=== PATIENT | male | born 1995 | race African-American/Black ===

== ENCOUNTER 2016-08-05 12:57 | Inpatient (IN) | payer OTHER ==
--- NOTE | 2016-08-05 13:53 | ED ---
Psychiatric Complaint - HPI Summary HPI Summary: Pt BIB campus police for odd/bizarre behavior over the past few weeks. Pt reports he feels his mentation is fine. Denies SI/HI. Has been at [employer] for 3 years now - stressful but he keeps himself busy with activities to prevent feeling down. Lives alone but discloses he may look for a roommate at some point. Has sibling on campus as well. From [place] - doesn't get back as much as he liked to. Reports he is eating and drinking well -3 meals a day. Sleeping well also - sometimes has to adjust his position but usually helps. When asked if he has auditory or visual hallucinations, he reports auditory when he's stressed. When asked more specifics, states he just has a lot of thoughts going through his head - no gauri message. Uses ETOH and may have a few cigarettes on the weekends but tries to limit his intake and does not use these during the week. Denies other drug or substance use at all. Denies ORDAZ, chest pain, dyspnea, ab pain, rash. Has been urinating and moving bowels well. Does report an area on his Lt foot between toes that has been an issue but states he took care of it. No pain, redness, streaking or swelling at this time. Denies health issues in general. - History Of Current Complaint Chief Complaint: EDMentalHealth Time Seen by Provider: 08/05/16 13:12 Hx Obtained From: Patient - Allergies/Home Medications Allergies/Adverse Reactions: Allergies Allergy/AdvReac Type Severity Reaction Status Date / Time Acetaminophen Allergy Hives Verified 08/05/16 20:20 seasonal allergies Allergy Difficulty Uncoded 08/05/16 20:23 Breathing PMH/Surg Hx/FS Hx/Imm Hx Previously Healthy: Yes Endocrine/Hematology History: Denies: Hx Anemia Infectious Disease History: No Infectious Disease History: Denies: Traveled Outside the [place] in Last 30 Days - Family History Known Family History: Positive: Cardiac Disease - Social History Occupation: Student Lives: Alone Alcohol Use: Weekly - weekend Hx Substance Use: No Substance Use Type: Reports: None Hx Tobacco Use: Yes - weekends w/ drinking ETOH, sparingly Review of Systems Negative: Fever, Chills Eyes: Negative ENT: Negative Cardiovascular: Negative Negative: Chest Pain Respiratory: Negative Negative: Shortness Of Breath Negative: Abdominal Pain, Vomiting, Diarrhea, Nausea Genitourinary: Negative Positive: see HPI Musculoskeletal: Negative Skin: Other - see HPI Neurological: Negative Psychological: Other - see HPI All Other Systems Reviewed And Are Negative: Yes Physical Exam Triage Information Reviewed: Yes Vital Signs On Initial Exam: Initial Vitals Temp Pulse Resp BP Pulse Ox 98.4 F 65 18 130/77 100 08/05/16 12:59 08/05/16 12:59 08/05/16 12:59 08/05/16 12:59 08/05/16 12:59 Vital Signs Reviewed: Yes Appearance: Positive: Well-Appearing, No Pain Distress, Thin Skin: Positive: Warm, Dry - area of calloused tissue w/ black spots within along lateral aspect of toe on Lt foot - NTTP, no erythema, no edema, no d/c, no streaking Head/Face: Positive: Normal Head/Face Inspection Eyes: Positive: Normal, EOMI, Conjunctiva Clear ENT: Positive: Hearing grossly normal, Pharynx normal. Negative: Nasal congestion Neck: Positive: Supple Respiratory/Lung Sounds: Positive: Clear to Auscultation, Breath Sounds Present. Negative: Rales, Rhonchi, Wheezes Cardiovascular: Positive: Normal, RRR, Pulses are Symmetrical in both Upper and Lower Extremities, S1, S2. Negative: Leg Edema Left, Leg Edema Right Abdomen Description: Positive: Nontender, Soft Bowel Sounds: Positive: Present Musculoskeletal: Positive: Normal, Strength/ROM Intact Neurological: Positive: Normal, Sensory/Motor Intact, Alert, Oriented to Person Place, Time, CN Intact II-III, Other - Pt is aware of person, place, location ( facility, county, city, state), time (date and day although was not sure if it was 2015 or 2017 regarding the year). Initially said Elsy was president but then corrected himself by saying Edin. Psychiatric: Positive: Other - somewhat flat affect; delayed response at times; stares at times, sometimes at me w/ eye contact, somtimes at other objects; appears somewhat fatigued and w/ difficulty concentrating/focusing intermittently; calm, cooperative, thoughts are organized; denies SI/HI; may have auditory hallucinations (see HPI for details) Diagnostics - Vital Signs Vital Signs Temp Pulse Resp BP Pulse Ox 08/05/16 12:59 98.4 F 65 18 130/77 100 - Laboratory Result Diagrams: 08/05/16 14:05 08/05/16 14:05 Lab Statement: Any lab studies that have been ordered have been reviewed, and results considered in the medical decision making process. Course/Dx - Course Course Of Treatment: Referred to for evaluation as he does appear to have a mental distance at this time. Admitted. Plantar wart appears to be under control at this time and may be tx'd outpt. - Differential Dx/Clinical Impression Provider Diagnosis: psychosis nos, Plantar wart Discharge - Discharge Plan Condition: Stable Disposition: ADMITTED TO [facility]
[2016-08-05 14:14] LABS: Benzodiazepine Urine Screen None Detected (None Detect); Urine Bilirubin Negative (Negative); Urine Glucose Negative (Negative); Urine Nitrite Negative (Negative)
[2016-08-05 14:16] LABS: Hematocrit 47 % (42-52); Hemoglobin 15.3 g/dl (14.0-18.0); Mean Corpuscular HGB Conc 33 g/dl (31-36); Mean Corpuscular Hemoglobin 26 pg (27-31); Mean Corpuscular Volume 81 fL (80-94); Mean Platelet Volume 8 um3 (7.4-10.4); Red Cell Distribution Width 14 % (10.5-15); White Blood Count 6.3 10^3/ul (3.5-10.8)
[2016-08-05 14:32] LABS: ALT 20 U/L (7-52); AST 29 U/L (13-39); Albumin 4.6 g/dL (3.2-5.2); Alkaline Phosphatase 89 U/L (34-104); Anion Gap 5 mmol/L (2-11); BUN/Creatinine Ratio 14.5 (8-20); Blood Urea Nitrogen 12 mg/dL (6-24); CO2 Carbon Dioxide 29 mmol/L (22-32); Calcium 9.6 mg/dL (8.6-10.3); Chloride 103 mmol/L (101-111); EGFR Non-African American 115.9 (>60); Globulin 3.1 g/dL (2-4); Glucose 88 mg/dL (70-100); Potassium 3.5 mmol/L (3.5-5.0); Sodium 137 mmol/L (133-145); Total Protein 7.7 g/dL (6.4-8.9)
[2016-08-05 14:50] LABS: Acetaminophen < 15 mcg/mL; Alcohol < 10 mg/dL (<10); Salicylate < 2.50 mg/dL (<30)
[2016-08-05 15:00] LABS: TSH (Thyroid Stimulating Horm) 0.78 mcIU/mL (0.34-5.60)
[2016-08-05] MEDS ORDERED: Acetaminophen TAB* 325 MG PO PRN (15:43)
[2016-08-05] MEDS ORDERED: Al Hydrox/Mg Hydrox/Simet LIQ* 30 ML UDC PO PRN (15:43)
[2016-08-05] MEDS: QUEtiapine TAB* 100 MG PO SCH (21:02)
[2016-08-05] MEDS: Ibuprofen TAB* 600 MG PO PRN (21:03)
[2016-08-06] MEDS: Sertraline* 50 MG TAB PO SCH (09:16)
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
[2016-08-06] MEDS: QUEtiapine TAB* 100 MG PO SCH (21:40)
[2016-08-06] MEDS: Ibuprofen TAB* 600 MG PO PRN (23:34)
[2016-08-07] MEDS: Sertraline* 50 MG TAB PO SCH (10:54)
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
[2016-08-07] MEDS: Ibuprofen TAB* 600 MG PO PRN (20:21)
[2016-08-07] MEDS: QUEtiapine TAB* 100 MG PO SCH (20:22)
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
[2016-08-08] MEDS: QUEtiapine TAB* 100 MG PO SCH (21:04)
[2016-08-09 08:08] LABS: HDL Cholesterol 70.8 mg/dL
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
[2016-08-09] MEDS: Ibuprofen TAB* 600 MG PO PRN (20:18)
[2016-08-09] MEDS: QUEtiapine TAB* 100 MG PO SCH (20:19)
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
[2016-08-10] MEDS: QUEtiapine TAB* 100 MG PO SCH (20:41)
[2016-08-10] MEDS: Ibuprofen TAB* 600 MG PO PRN (20:42)
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
[2016-08-11] MEDS: Ibuprofen TAB* 600 MG PO PRN (20:12)
[2016-08-11] MEDS: QUEtiapine TAB* 100 MG PO SCH (20:12)
[2016-08-12] MEDS: QUEtiapine TAB* 100 MG PO SCH (21:04)
[2016-08-12] MEDS: Ibuprofen TAB* 600 MG PO PRN (21:05)
[2016-08-13] MEDS: Ibuprofen TAB* 600 MG PO PRN (20:21)
[2016-08-13] MEDS: QUEtiapine TAB* 100 MG PO SCH (20:22)
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
[2016-08-14] MEDS: Ibuprofen TAB* 600 MG PO PRN (20:31)
[2016-08-14] MEDS ORDERED: QUEtiapine TAB* 100 MG PO SCH (21:00)
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
[2016-08-15] MEDS: QUEtiapine TAB* 100 MG PO SCH (21:14)
[2016-08-15] MEDS: Ibuprofen TAB* 600 MG PO PRN (21:16)
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
[2016-08-16] MEDS: QUEtiapine TAB* 100 MG PO SCH (20:20)
[2016-08-16] MEDS: Ibuprofen TAB* 600 MG PO PRN (20:22)
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
[2016-08-17] MEDS: QUEtiapine TAB* 100 MG PO SCH (20:18)
[2016-08-17] MEDS: Ibuprofen TAB* 600 MG PO PRN (20:19)
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
[2016-08-18] MEDS: Ibuprofen TAB* 600 MG PO PRN (20:20)
[2016-08-18] MEDS: QUEtiapine TAB* 100 MG PO SCH (20:20)
[2016-08-19] MEDS: QUEtiapine TAB* 100 MG PO SCH (20:28)
[2016-08-19] MEDS: Ibuprofen TAB* 600 MG PO PRN (20:28)
[2016-08-20] MEDS: Ibuprofen TAB* 600 MG PO PRN ×2 (17:19→21:31)
[2016-08-20] MEDS: QUEtiapine TAB* 100 MG PO SCH (21:29)
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
[2016-08-21] MEDS: QUEtiapine TAB* 100 MG PO SCH (20:22)
[2016-08-21] MEDS: Ibuprofen TAB* 600 MG PO PRN (20:23)
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
[2016-08-22] MEDS: Ibuprofen TAB* 600 MG PO PRN (20:18)
[2016-08-22] MEDS: QUEtiapine TAB* 100 MG PO SCH (20:18)
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
[2016-08-23] MEDS: QUEtiapine TAB* 100 MG PO SCH (20:36)
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
[2016-08-24] MEDS: QUEtiapine TAB* 100 MG PO SCH (20:06)
[2016-08-24] MEDS: Ibuprofen TAB* 600 MG PO PRN (20:07)
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
[2016-08-25] MEDS: QUEtiapine TAB* 100 MG PO SCH (20:31)
[2016-08-25] MEDS: Ibuprofen TAB* 600 MG PO PRN (21:44)
[2016-08-26] MEDS: Ibuprofen TAB* 600 MG PO PRN (20:45)
[2016-08-26] MEDS: QUEtiapine TAB* 100 MG PO SCH (20:45)
[2016-08-27] MEDS: Ibuprofen TAB* 600 MG PO PRN (21:00)
[2016-08-27] MEDS: QUEtiapine TAB* 100 MG PO SCH (21:01)
[2016-08-27] MEDS: Haloperidol TAB* 5 MG PO PRN (23:17)
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
[2016-08-28] MEDS: Ibuprofen TAB* 600 MG PO PRN (20:28)
[2016-08-28] MEDS: QUEtiapine TAB* 100 MG PO SCH (20:28)
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
[2016-08-29] MEDS: guaiFENesin LIQ* 100 MG/5 ML UDC PO PRN ×2 (18:17→23:52)
[2016-08-29] MEDS: QUEtiapine TAB* 100 MG PO SCH (21:00)
[2016-08-29] MEDS: Ibuprofen TAB* 600 MG PO PRN (21:01)
[2016-08-30] MEDS: guaiFENesin LIQ* 100 MG/5 ML UDC PO PRN (08:36)
[2016-08-30] MEDS: Benzocaine/Menthol LOZ* 1 LOZENGE PO PRN ×3 (12:40→20:29)
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
[2016-08-30] MEDS: QUEtiapine TAB* 100 MG PO SCH ×2 (20:27→21:36)
[2016-08-30] MEDS: Ibuprofen TAB* 600 MG PO PRN (20:27)
[2016-08-31] MEDS: Benzocaine/Menthol LOZ* 1 LOZENGE PO PRN ×2 (08:57→13:33)
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
[2016-08-31] MEDS: Ibuprofen TAB* 600 MG PO PRN ×2 (13:32→20:11)
[2016-08-31] MEDS: QUEtiapine TAB* 100 MG PO SCH (20:10)
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
[2016-09-01 14:49] LABS: Manual Entry Verification GRE0060; Rapid HIV INT CONT QC Line Present; Rapid HIV Kit Lot# F209011
[2016-09-01] MEDS: Benzocaine/Menthol LOZ* 1 LOZENGE PO PRN (20:17)
[2016-09-01] MEDS: QUEtiapine TAB* 100 MG PO SCH (20:17)
[2016-09-01] MEDS: Ibuprofen TAB* 600 MG PO PRN (20:17)
[2016-09-02] MEDS: Benzocaine/Menthol LOZ* 1 LOZENGE PO PRN ×2 (07:43→20:19)
[2016-09-02] MEDS: QUEtiapine TAB* 100 MG PO SCH (20:17)
[2016-09-02] MEDS: Ibuprofen TAB* 600 MG PO PRN (20:58)
[2016-09-03] MEDS: Benzocaine/Menthol LOZ* 1 LOZENGE PO PRN ×2 (08:04→17:54)
[2016-09-03] MEDS: Haloperidol TAB* 5 MG PO PRN (17:55)
[2016-09-03] MEDS: Ibuprofen TAB* 600 MG PO PRN (20:20)
[2016-09-03] MEDS: QUEtiapine TAB* 100 MG PO SCH (20:33)
--- NOTE | 2016-09-04 10:56 | PN ---
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 He continues with evidence of psychosis, mainly in terms of negative symptoms and paranoid stance. He is in basic behavioral contol, but withdrawn, isolative. [facility] Medmgt. is with quetiapine. Plan - Plan Treatment Plan: Name: MICHAEL DODD Birthdate: 1995 [id number] Medications: Current Medications Al Hydrox/Mg Hydrox/Simethicone (Maalox Plus*) 30 ml PO Q6H PRN PRN Reason: INDIGESTION Guaifenesin (Robitussin*) 5 ml PO Q6H PRN PRN Reason: COUGH Last Admin: 08/30/16 08:36 Dose: 5 ml Haloperidol (Haldol Tab*) 5 mg PO Q6H PRN PRN Reason: AGITATION/ANXIETY/INSOMNIA Last Admin: 09/03/16 17:55 Dose: 5 mg Ibuprofen (Motrin Tab*) 600 mg PO Q6H PRN PRN Reason: PAIN Last Admin: 09/03/16 20:20 Dose: 600 mg Quetiapine Fumarate (Seroquel Tab*) 300 mg PO BEDTIME GENEVA Last Admin: 09/03/16 20:33 Dose: 300 mg Throat Lozenges (Chloraseptic Yamile*) 1 yamile PO Q2H PRN PRN Reason: SORE THROAT Last Admin: 09/03/16 17:54 Dose: 1 yamile
[2016-09-04] MEDS: Ibuprofen TAB* 600 MG PO PRN (20:15)
[2016-09-04] MEDS: QUEtiapine TAB* 100 MG PO SCH (20:15)
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
[2016-09-05] MEDS: Ibuprofen TAB* 600 MG PO PRN (21:09)
[2016-09-05] MEDS: Benzocaine/Menthol LOZ* 1 LOZENGE PO PRN (21:09)
[2016-09-05] MEDS: QUEtiapine TAB* 100 MG PO SCH (21:10)
[2016-09-05] MEDS: guaiFENesin LIQ* 100 MG/5 ML UDC PO PRN (21:13)
[2016-09-06] MEDS: Benzocaine/Menthol LOZ* 1 LOZENGE PO PRN (12:54)
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
[2016-09-06] MEDS: QUEtiapine TAB* 100 MG PO SCH (20:06)
[2016-09-07] MEDS: Benzocaine/Menthol LOZ* 1 LOZENGE PO PRN ×2 (14:01→19:02)
[2016-09-07] MEDS: Ibuprofen TAB* 600 MG PO PRN (19:03)
[2016-09-07] MEDS: QUEtiapine TAB* 100 MG PO SCH (20:22)
[2016-09-08] MEDS: Benzocaine/Menthol LOZ* 1 LOZENGE PO PRN ×2 (09:50→20:03)
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
[2016-09-08] MEDS: QUEtiapine TAB* 100 MG PO SCH (20:01)
[2016-09-08] MEDS: Ibuprofen TAB* 600 MG PO PRN (20:03)
[2016-09-09] MEDS: Ibuprofen TAB* 600 MG PO PRN (20:19)
[2016-09-09] MEDS: QUEtiapine TAB* 100 MG PO SCH (20:20)
[2016-09-10] MEDS: Benzocaine/Menthol LOZ* 1 LOZENGE PO PRN (09:55)
[2016-09-10] MEDS: Ibuprofen TAB* 600 MG PO PRN ×2 (09:55→20:16)
[2016-09-10] MEDS: QUEtiapine TAB* 100 MG PO SCH (20:15)
[2016-09-11] MEDS: Ibuprofen TAB* 600 MG PO PRN (07:53)
[2016-09-11] MEDS: guaiFENesin LIQ* 100 MG/5 ML UDC PO PRN (07:53)
[2016-09-11 08:06] VITALS: BP 132/95
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
[2016-09-11] MEDS ORDERED: QUEtiapine TAB* 100 MG PO SCH (21:00)
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
== END 2016-09-12 16:00 | DRG 885 ==
LOC: ED 12:57 → BSU 16:12
PROVIDERS: ADMIT Psychiatry & Neurology Psychiatry; ATTEND Psychiatry & Neurology Psychiatry
DX: F20.9 Schizophrenia, unspecified (principal); F12.929 Cannabis use, unspecified with intoxication, unspecified; J30.2 Other seasonal allergic rhinitis; Z91.5 Personal history of self-harm; Z88.6 Allergy status to analgesic agent; Z82.49 Family history of ischemic heart disease and other diseases of the circulatory system; Z63.9 Problem related to primary support group, unspecified; Z72.0 Tobacco use
CPT/HCPCS: 36415; 80053; 80061; 80307; 80320; 80329; 81003; 83036; 84443; 85025; 86703; 86803; 90847; 99222; 99231; 99232; 99238; 99406; A9270-GY; G0480

== ENCOUNTER 2021-10-04 17:21 | Inpatient (IN) ==
[2021-10-04 18:50] LABS: Urine Appearance Clear; Urine Bilirubin Negative (Negative); Urine Blood Negative (Negative); Urine Color Yellow; Urine Glucose Negative (Negative); Urine Ketones Negative (Negative); Urine Nitrite Negative (Negative); Urine Protein Negative (Negative); Urine Urobilinogen Negative (Negative)
[2021-10-04 18:55] LABS: ABS Eosinophils 0.4 10^3/ul (0-0.6); ABS Lymphocytes 1.3 10^3/ul (1.0-4.8); ABS Monocytes 0.9 10^3/ul (0-0.8); ABS Neutrophils 3.8 10^3/ul (1.5-7.7); Eosinophil % 6.2 %; Hematocrit 40 % (42-52); Hemoglobin 12.7 g/dL (14.0-18.0); Lymphocyte % 20.4 %; Mean Corpuscular HGB Conc 32 g/dL (31-36); Mean Corpuscular Hemoglobin 26 pg (27-31); Mean Corpuscular Volume 81 fL (80-94); Mean Platelet Volume 7.4 fL (7.4-10.4); Platelet Count 277 10^3/uL (150-450); Red Blood Count 4.89 10^6 /uL (4.18-5.48); Red Cell Distribution Width 16 % (10-15); White Blood Count 6.4 10^3/uL (3.5-10.8)
[2021-10-04 19:13] LABS: Urine Benzodiazepine Screen None Detected (None Detect); Urine Cannabinoids Screen None Detected (None Detect); Urine Opiates Screen None Detected (None Detect)
[2021-10-04 19:41] LABS: ALT 38 U/L (7-52); AST 43 U/L (13-39); Acetaminophen < 15 mcg/mL; Albumin 4.1 g/dL (3.2-5.2); Albumin/Globulin Ratio 1.6 (1-3); Alcohol, S < 13 mg/dL (<13); Alkaline Phosphatase 66 U/L (35-149); Anion Gap 5 mmol/L (2-11); Blood Urea Nitrogen 16 mg/dL (6-24); CO2 Carbon Dioxide 30 mmol/L (22-32); Calcium 9.3 mg/dL (8.6-10.3); Chloride 103 mmol/L (101-111); Globulin 2.5 g/dL (2-4); Glucose 72 mg/dL (70-100); Potassium 3.4 mmol/L (3.5-5.0); Salicylate < 2.50 mg/dL (<30); Sodium 138 mmol/L (135-145); Total Protein 6.6 g/dL (6.4-8.9); eGFR CKD-EPI 124.9 (>60)
[2021-10-04 19:48] LABS: TSH Ultra Thyroid Stim Horm 1.55 mcIU/mL (0.34-5.60)
[2021-10-05] MEDS ORDERED: Al Hydrox/Mg Hydrox/Simet LIQ 30 ML UDC PO PRN (08:58)
[2021-10-05] MEDS ORDERED: Lorazepam PYXIS KEY PRN (11:55)
[2021-10-05] MEDS ORDERED: Haloperidol 5 mg/ml SDV IV/IM 5 MG/ML AMP IM ONE (11:55)
[2021-10-05] MEDS ORDERED: LORazepam 2 mg VIAL 1 ml IM ONE (11:55)
[2021-10-05] MEDS ORDERED: LORazepam 2 mg VIAL 1 ml ONE (11:58)
[2021-10-06 08:50] LABS: HDL Cholesterol 88.9 mg/dL
[2021-10-06] MEDS ORDERED: Haloperidol 5 mg/ml SDV IV/IM 5 MG/ML AMP ONE (10:31)
[2021-10-06] MEDS ORDERED: Lorazepam PYXIS KEY PRN (10:32)
[2021-10-06] MEDS ORDERED: Haloperidol 5 mg/ml SDV IV/IM 5 MG/ML AMP IM ONE (10:32)
[2021-10-06] MEDS ORDERED: LORazepam 2 mg VIAL 1 ml ONE (10:32)
[2021-10-06] MEDS ORDERED: LORazepam 2 mg VIAL 1 ml IM ONE (10:32)
[2021-10-06] MEDS: [UNRECOGNIZED DRUG - OTHER] TOPICAL SCH (15:28)
[2021-10-07] MEDS: [UNRECOGNIZED DRUG - OTHER] TOPICAL SCH ×2 (11:09→21:20)
[2021-10-07 12:53] LABS: Vitamin D Total 25(OH) 17.2 ng/mL (20-50)
[2021-10-08] MEDS: [UNRECOGNIZED DRUG - OTHER] TOPICAL SCH (07:36)
[2021-10-09] MEDS: [UNRECOGNIZED DRUG - OTHER] TOPICAL SCH (08:58)
[2021-10-10] MEDS: [UNRECOGNIZED DRUG - OTHER] TOPICAL SCH (12:18)
[2021-10-11] MEDS: [UNRECOGNIZED DRUG - OTHER] TOPICAL SCH (12:56)
[2021-10-12] MEDS: [UNRECOGNIZED DRUG - OTHER] TOPICAL SCH (09:18)
[2021-10-13] MEDS: [UNRECOGNIZED DRUG - OTHER] TOPICAL SCH ×2 (10:50→19:23)
[2021-10-14] MEDS: [UNRECOGNIZED DRUG - OTHER] TOPICAL SCH (08:53)
[2021-10-15] MEDS: [UNRECOGNIZED DRUG - OTHER] TOPICAL SCH (08:38)
[2021-10-16] MEDS: [UNRECOGNIZED DRUG - OTHER] TOPICAL SCH (08:53)
[2021-10-17] MEDS ORDERED: risperiDONE-M 1 mg Oradis TAB PO PRN (10:11)
[2021-10-17] MEDS ORDERED: OLANZapine IM (NF) 10 MG VIAL IM ONE ×3 (10:16→10:25)
[2021-10-17] MEDS: [UNRECOGNIZED DRUG - OTHER] TOPICAL SCH (10:50)
[2021-10-17] MEDS: risperiDONE-M 1 mg Oradis TAB PO SCH (10:50)
[2021-10-18] MEDS: risperiDONE-M 1 mg Oradis TAB PO SCH (11:22)
[2021-10-18] MEDS: [UNRECOGNIZED DRUG - OTHER] TOPICAL SCH (11:23)
[2021-10-19] MEDS: [UNRECOGNIZED DRUG - OTHER] TOPICAL SCH (10:26)
[2021-10-19] MEDS: risperiDONE-M 1 mg Oradis TAB PO SCH (10:26)
[2021-10-20] MEDS: risperiDONE-M 1 mg Oradis TAB PO SCH (10:05)
[2021-10-20] MEDS: [UNRECOGNIZED DRUG - OTHER] TOPICAL SCH (10:11)
[2021-10-21] MEDS: risperiDONE-M 1 mg Oradis TAB PO SCH (08:09)
[2021-10-21] MEDS: [UNRECOGNIZED DRUG - OTHER] TOPICAL SCH (09:11)
[2021-10-22] MEDS: risperiDONE-M 1 mg Oradis TAB PO SCH (10:04)
[2021-10-22] MEDS: [UNRECOGNIZED DRUG - OTHER] TOPICAL SCH (10:04)
[2021-10-23] MEDS: risperiDONE-M 1 mg Oradis TAB PO SCH (14:22)
[2021-10-23] MEDS: [UNRECOGNIZED DRUG - OTHER] TOPICAL SCH (14:23)
[2021-10-24] MEDS: risperiDONE-M 1 mg Oradis TAB PO SCH ×2 (10:55→13:34)
[2021-10-24] MEDS: [UNRECOGNIZED DRUG - OTHER] TOPICAL SCH (10:55)
[2021-10-24] MEDS ORDERED: Paliperidone SUSTENNA 234 MG/1.5 ML IM ONE (11:27)
[2021-10-25] MEDS: [UNRECOGNIZED DRUG - OTHER] TOPICAL SCH (10:32)
[2021-10-26] MEDS: [UNRECOGNIZED DRUG - OTHER] TOPICAL SCH (08:55)
[2021-10-27] MEDS: [UNRECOGNIZED DRUG - OTHER] TOPICAL SCH (10:56)
[2021-10-28] MEDS ORDERED: Paliperidone SUSTENNA 156 MG/1 ML IM ONE (09:00)
[2021-10-28] MEDS: [UNRECOGNIZED DRUG - OTHER] TOPICAL SCH (10:26)
[2021-10-29] MEDS: [UNRECOGNIZED DRUG - OTHER] TOPICAL SCH (08:28)
[2021-10-30] MEDS: [UNRECOGNIZED DRUG - OTHER] TOPICAL SCH (07:37)
[2021-10-31] MEDS: [UNRECOGNIZED DRUG - OTHER] TOPICAL SCH (09:09)
[2021-11-01] MEDS: [UNRECOGNIZED DRUG - OTHER] TOPICAL SCH (07:28)
[2021-11-02] MEDS: [UNRECOGNIZED DRUG - OTHER] TOPICAL SCH (10:44)
[2021-11-03] MEDS: [UNRECOGNIZED DRUG - OTHER] TOPICAL SCH (08:50)
[2021-11-04] MEDS: [UNRECOGNIZED DRUG - OTHER] TOPICAL SCH (08:21)
[2021-11-05] MEDS: [UNRECOGNIZED DRUG - OTHER] TOPICAL SCH (08:51)
[2021-11-05] MEDS ORDERED: OLANZapine IM (NF) 10 MG VIAL IM ONE (18:58)
[2021-11-06] MEDS: [UNRECOGNIZED DRUG - OTHER] TOPICAL SCH (07:39)
[2021-11-07] MEDS ORDERED: OLANZapine IM (NF) 10 MG VIAL IM ONE (10:40)
[2021-11-07] MEDS: [UNRECOGNIZED DRUG - OTHER] TOPICAL SCH (10:42)
[2021-11-08] MEDS: [UNRECOGNIZED DRUG - OTHER] TOPICAL SCH (08:59)
[2021-11-09] MEDS: [UNRECOGNIZED DRUG - OTHER] TOPICAL SCH (08:51)
[2021-11-10] MEDS: [UNRECOGNIZED DRUG - OTHER] TOPICAL SCH (08:23)
[2021-11-11] MEDS: [UNRECOGNIZED DRUG - OTHER] TOPICAL SCH (11:31)
[2021-11-12] MEDS: [UNRECOGNIZED DRUG - OTHER] TOPICAL SCH (12:06)
[2021-11-13] MEDS: [UNRECOGNIZED DRUG - OTHER] TOPICAL SCH (11:58)
[2021-11-14] MEDS: [UNRECOGNIZED DRUG - OTHER] TOPICAL SCH (10:24)
[2021-11-15] MEDS: [UNRECOGNIZED DRUG - OTHER] TOPICAL SCH (12:03)
[2021-11-16] MEDS: [UNRECOGNIZED DRUG - OTHER] TOPICAL SCH (12:45)
[2021-11-17] MEDS: [UNRECOGNIZED DRUG - OTHER] TOPICAL SCH (08:31)
[2021-11-18] MEDS: [UNRECOGNIZED DRUG - OTHER] TOPICAL SCH (10:12)
[2021-11-19] MEDS: [UNRECOGNIZED DRUG - OTHER] TOPICAL SCH (09:54)
[2021-11-20] MEDS: [UNRECOGNIZED DRUG - OTHER] TOPICAL SCH (10:11)
[2021-11-21] MEDS: [UNRECOGNIZED DRUG - OTHER] TOPICAL SCH (10:28)
[2021-11-22] MEDS: [UNRECOGNIZED DRUG - OTHER] TOPICAL SCH (09:06)
[2021-11-23] MEDS: [UNRECOGNIZED DRUG - OTHER] TOPICAL SCH (11:26)
[2021-11-23] MEDS ORDERED: Paliperidone SUSTENNA 234 MG/1.5 ML IM ONE (13:57)
[2021-11-24] MEDS: [UNRECOGNIZED DRUG - OTHER] TOPICAL SCH (07:15)
[2021-11-25] MEDS ORDERED: Paliperidone SUSTENNA 234 MG/1.5 ML IM ONE (09:00)
[2021-11-25] MEDS: [UNRECOGNIZED DRUG - OTHER] TOPICAL SCH (10:07)
[2021-11-26] MEDS: [UNRECOGNIZED DRUG - OTHER] TOPICAL SCH (09:18)
[2021-11-27] MEDS: [UNRECOGNIZED DRUG - OTHER] TOPICAL SCH (10:51)
[2021-11-28] MEDS: [UNRECOGNIZED DRUG - OTHER] TOPICAL SCH (11:36)
[2021-11-29] MEDS: [UNRECOGNIZED DRUG - OTHER] TOPICAL SCH (09:13)
[2021-11-30] MEDS: [UNRECOGNIZED DRUG - OTHER] TOPICAL SCH (12:12)
[2021-12-01] MEDS: [UNRECOGNIZED DRUG - OTHER] TOPICAL SCH (11:30)
[2021-12-02] MEDS: [UNRECOGNIZED DRUG - OTHER] TOPICAL SCH (12:58)
[2021-12-03] MEDS: [UNRECOGNIZED DRUG - OTHER] TOPICAL SCH (15:31)
[2021-12-04] MEDS: [UNRECOGNIZED DRUG - OTHER] TOPICAL SCH (12:09)
[2021-12-05] MEDS: [UNRECOGNIZED DRUG - OTHER] TOPICAL SCH (13:29)
[2021-12-06] MEDS: [UNRECOGNIZED DRUG - OTHER] TOPICAL SCH (12:55)
[2021-12-06 21:05] VITALS: BP 116/69
[2021-12-07] MEDS: [UNRECOGNIZED DRUG - OTHER] TOPICAL SCH (09:18)
[2021-12-08] MEDS: [UNRECOGNIZED DRUG - OTHER] TOPICAL SCH (08:19)
== END 2021-12-08 10:00 | DRG 750 ==
LOC: ED 17:21 → EDHOLD 10-05 09:24 → BSU 10-05 12:16
PROVIDERS: ADMIT Psychiatry & Neurology Psychiatry; ATTEND Psychiatry & Neurology Psychiatry